=== PATIENT | female | born 1975 | race Caucasian/White ===

== ENCOUNTER 2017-08-12 16:11 | Emergency (ER) | payer OTHER ==
[2017-08-12 17:35] LABS: Bilirubin Negative (Negative); Blood, Urine Trace (Negative); Glucose, Urine (Dipstick) Negative (Negative); Ketone, Urine 80 mg/dL (Negative); Nitrite Negative (Negative); Protein, Urine (Dipstick) Negative (Neg-Trace); Urobilinogen 0.2 mg/dL (0.2-1.0)
[2017-08-12 17:37] LABS: Bacteria/HPF Rare-Few HPF (None Seen); Hyaline Casts/LPF 0-3 HYALINE CAST LPF (0-3 Hyaline); WBC/HPF 0-3 HPF (0-3)
[2017-08-12 17:59] LABS: #Lymphocytes 2.2 thou/uL (1.20-3.40); #Monocytes 0.7 thou/uL (0.11-0.59); #Neutrophils 9.9 thou/uL (1.40-6.50); %Basophils 0.2 % (0.0-1.0); %Eosinophils 0.2 % (0.0-10.0); %Lymphocytes 17.1 % (21.0-51.0); %Monocytes 5.7 % (0.0-10.0); Hematocrit 43.8 % (36.0-47.0); Mean Platelet Volume 7.6 fL (7.4-10.4); White Blood Cell (WBC) Count 12.9 thou/uL (4.8-10.8)
[2017-08-12 18:17] LABS: Lactic Acid - Sepsis 1.1 mmol/L (0.5-2.2)
[2017-08-12 18:20] LABS: ALT (SGPT) 14 U/L (8-55); AST (SGOT) 13 U/L (5-34); Alkaline Phosphatase 87 U/L (40-150); Anion Gap 15 mmol/L (10-20); BUN (Urea Nitrogen) 11 mg/dL (7.0-18.7); Bilirubin, Total 0.5 mg/dL (0.2-1.2); Calc. Creatinine Clearance 0 mL/min (70-130); Calcium 9.5 mg/dL (7.8-10.44); Carbon Dioxide 23 mmol/L (22-29); Chloride 106 mmol/L (98-107); Estimated GFR-MDRD 60; Globulin 3.3 g/dL (2.4-3.5); Protein, Total 7.4 g/dL (6.0-8.3)
[2017-08-12] MEDS ORDERED: Fentanyl 100 MCG/2 ML VIAL ONE (19:07)
[2017-08-12] MEDS ORDERED: Midazolam HCl 2 mg/2 ml Vial ONE (19:07)
[2017-08-12] MEDS ORDERED: CEFAZOLIN/Water 2 GM/20 ML SYRINGE ONE (19:10)
[2017-08-12] MEDS ORDERED: Sodium Chloride 0.9% 0 ML ONE (19:17)
[2017-08-12] MEDS ORDERED: Dexamethasone 20 MG/5 ML VIAL ONE (19:30)
[2017-08-12] MEDS ORDERED: Propofol 200 MG/20 ML VIAL ONE (19:30)
[2017-08-12] MEDS ORDERED: Glycopyrrolate 0.2 MG/ML 5 ML SYRINGE ONE (19:30)
[2017-08-12] MEDS ORDERED: Ondansetron HCl/PF 4 MG/2 ML Vial ONE ×2 (19:30→20:59)
[2017-08-12] MEDS ORDERED: Lidocaine 2% PF 10 ML AMP (For Epidural Use) ONE (19:30)
--- NOTE | 2017-08-12 20:38 | RAD ---
RETROGRADE PYELOGRAM TWO VIEWS: History: Stent placement. FINDINGS: A calculus is noted in the region of the left renal pelvis. On the second film there shows placement of a left ureteral stent. IMPRESSION: Left ureteral stent placement. POS: [facility]
[2017-08-12] MEDS ORDERED: Sodium Chloride 0.9% 10 ML ONE (20:59)
--- NOTE | 2017-08-12 21:13 | OP ---
DATE OF SURGERY: 08/12/2017 PREOPERATIVE DIAGNOSIS: Left ureteropelvic junction stone. POSTOPERATIVE DIAGNOSIS: Left ureteropelvic junction stone. PROCEDURE: Cystoscopy, left double-J stent placement. SURGEON: Bimal Estrada M.D. ANESTHESIA: General. INDICATIONS: Ms. Mcintosh is a 42-year-old female, who presented with acute left-sided flank pain. The pain was difficult to manage in emergency room. She opted to proceed with surgical therapy. DETAILS OF PROCEDURE: The patient was given general anesthesia and IV antibiotics. She was sterile ly prepped and draped in the lithotomy position. The cystoscope was passed into the bladder and guy dder examined in its entirety. There were no mucosal abnormalities. Left ureteral orifice was intu bated with a floppy tip guidewire. The left UPJ stone was easily visualized on fluoroscopic imaging . That was manipulated into the kidney and then a 6 x 22 double-J stent was passed over the guidewi re and coiled in the left renal pelvis and in the bladder as determined fluoroscopically and cystosc opically. The bladder was drained and cystoscope was removed. The patient was transported from the operating room to recovery room in stable condition. COMPLICATIONS: None. ESTIMATED BLOOD LOSS: Less than 5 mL
--- NOTE | 2017-08-12 22:58 | CON ---
DATE OF CONSULTATION: 08/12/2017 CHIEF COMPLAINT: Left flank pain. HISTORY: Ms. Mcintosh is a 42-year-old female, who presented with acute onset of left-sided flank pa in. She was transferred here from an outside facility. She underwent imaging that demonstrated a l eft UPJ stone 12-mm in size. She has no prior history of stone disease. Her pain has been difficul t to manage in the emergency room and she is opted to proceed with left ureteral stent placement. PAST MEDICAL HISTORY: Asthma. PAST SURGICAL HISTORY: x2, hysterectomy, shoulder manipulation and gastric sleeve (2016). MEDICATIONS: Advair Diskus, Ventolin inhaler and . ALLERGIES: ASPIRIN, TORADOL, and CODEINE. SOCIAL HISTORY: She is nonsmoker, nondrinker. Denies excessive alcohol use. 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 FAMILY HISTORY: Noncontributory. REVIEW OF SYSTEMS: Respiratory: No shortness of breath. Cardiovascular: No chest pain or palpita tions. Gastrointestinal: Denies chronic constipation, diarrhea, recently status post gastric sleev e. Neurologic: Denies any unilateral weakness. Genitourinary: Please see history of present illn ess. PHYSICAL EXAMINATION: GENERAL: She is awake and alert. She is in mild distress at this time. HEENT: Normocephalic, atraumatic. NECK: Supple, without masses. CHEST: Clear to auscultation. CARDIOVASCULAR: Regular rate and rhythm. ABDOMEN: Soft, nontender. No palpable masses. Liver and spleen are palpable. No abdominal tender ness noted. IMPRESSION: Ms. Mcintosh is a 42-year-old female with a 12-mm left ureteropelvic junction stone, whi ch is causing symptomatic left-sided flank pain. She is not able to be easily managed with medical therapy. She is opted to proceed with surgical therapy. As such, cystoscopy and left ureteral sten t has been recommended. She wishes to proceed. The potential limitations, alternatives, and compli cations have been discussed with her. PLAN: Cystoscopy and left double-J stent placement.
== END 2017-08-12 18:46 | disposition admitted as inpatient to this hospital (09) ==
LOC: ERS 16:11
DX: N20.0 Calculus of kidney (principal); J45.909 Unspecified asthma, uncomplicated; Z79.899 Other long term (current) drug therapy
CPT/HCPCS: 36415; 74420; 80053; 81003; 81015; 83605; 85025; 87086; 96374; A4216; C1769; J1100; J2001; J2250; J2405; J2704; J3010